=== PATIENT | male | born 1955 | race Caucasian/White ===

== ENCOUNTER 2016-10-26 00:20 | Inpatient (IN) | payer OTHER ==
[~2016-10-26] VITALS: Ht 177.8 cm; Wt 84.4 kg
[2016-10-26] VITALS (12 sets, daily range): BP systolic 115–140; BP diastolic 55–75
[2016-10-26] MEDS ORDERED: PHENYLEPHRINE 0.5% NASAL SPRAY 15 ML BOTTLE NS ONE (00:59)
[2016-10-26] MEDS ORDERED: PHENYLEPHRINE HCL NASAL SPRAY 15 ML BOTTLE NS ONE (01:00)
[2016-10-26 01:40] LABS: POTASSIUM 3.7 mmol/L (3.5-5.1)
[2016-10-26 01:42] LABS: ALBUMIN 2.5 g/dL (3.4-5.0); BILIRUBIN,DIRECT 0.1 mg/dL (0.0-0.2); BILIRUBIN,TOTAL 0.4 mg/dL (0.2-1.0); INDIRECT BILIRUBIN 0.3 mg/dL (0.0-1.1); TOTAL PROTEIN, SERUM 8.9 g/dL (6.4-8.2)
[2016-10-26 01:50] LABS: BASOPHILS % (AUTO) 0.2 % (0.0-2.0); EOSINOPHILS # (AUTO) 0.1 /CMM (0.0-0.7); EOSINOPHILS % (AUTO) 1.8 % (0.0-6.0); HEMATOCRIT 24 % (39-51); HEMOGLOBIN 8.1 g/dL (13.5-17.5); LYMPHOCYTES # (AUTO) 0.8 /CMM (0.8-4.8); LYMPHOCYTES % (AUTO) 14.9 % (20.0-44.0); MEAN CORPUSCULAR HEMOGLOBIN 31 PG (26.0-33.0); MEAN CORPUSCULAR HGB CONC 34 g/dl (31.0-36.0); MEAN CORPUSCULAR VOLUME 91 fL (80-96); MONOCYTES # (AUTO) 3.1 /CMM (0.1-1.30); MONOCYTES % (AUTO) 59.6 % (2.0-12.0); NEUTROPHILS # (AUTO) 1.2 /CMM (1.8-8.9); NEUTROPHILS % (AUTO) 23.5 % (43.0-81.0); RED BLOOD CELL COUNT(AUTO) 2.63 MIL/uL (4.5-6.0); WHITE BLOOD COUNT (AUTO) 5.2 K/uL (4.3-11.0)
[2016-10-26 01:58] LABS: PLATELET COUNT (AUTO) 7 /CMM (150-450)
[2016-10-26] MEDS ORDERED: IV NS 0.9% 1,000 ML BAG IV ONE (02:00)
[2016-10-26 02:10] LABS: INR 1.16 (0.87-1.13); PROTHROMBIN TIME 12.6 SECS (9.5-12.7)
[2016-10-26] MEDS ORDERED: IV NS 0.9% 1,000 ML ONE ×2 (02:11→03:25)
[2016-10-26] MEDS ORDERED: IV SET PRIMARY 1 EA INFUS.SET MC ONE (02:11)
[2016-10-26] MEDS ORDERED: PLATELET IV SET 1 EA INFUS.SET MC ONE ×2 (02:54→10:02)
[2016-10-26] MEDS ORDERED: ONDANSETRON HCL/PF 4 MG/2 ML VIAL IVP PRN (03:30)
[2016-10-26] MEDS ORDERED: ACETAMINOPHEN 325 MG TABLET PO PRN (03:30)
[2016-10-26] MEDS ORDERED: MAGNESIUM HYDROXIDE 30 ML UDC PO PRN (03:30)
[2016-10-26] MEDS ORDERED: HYDROCODONE/APAP 10/325MG 1 EA TABLET PO PRN (03:30)
[2016-10-26] MEDS ORDERED: MAG HYDROX/AL HYDROX/SIMETH 30 ML UDC PO PRN (03:30)
[2016-10-26] MEDS ORDERED: ZOLPIDEM TARTRATE 5 MG TABLET PO PRN (03:30)
[2016-10-26] MEDS ORDERED: Z GUARD REMEDY 2 OZ OINT TP PRN (03:30)
[2016-10-26] MEDS ORDERED: HYDROCODONE/APAP 5/325MG 1 EACH TABLET PO PRN (03:30)
[2016-10-26] MEDS ORDERED: IV SET PRIMARY PUMP SET 1 EA INFUS.SET MC ONE (03:32)
[2016-10-26] MEDS: IV NS 0.9% 1,000 ML IV PRN (03:37)
[2016-10-26] MEDS ORDERED: IV NS 0.9% 250 ML IV ONE (03:41)
[2016-10-26] MEDS ORDERED: BLOOD IV SET 1 EA INFUS.SET MC ONE (03:41)
[2016-10-26 04:08] LABS: ANISOCYTOSIS 1+; BAND % (MANUAL) 5 % (0.0-5.0); BASOPHILS % (MANUAL) 0 % (0.0-2.0); EOSINOPHILS % (MANUAL) 3 % (0-4); LYMPHOCYTES % (MANUAL) 61 % (16-48); PLATELET ESTIMATE DECREASED
[2016-10-26 06:00] LABS: COLLAGEN/ADP > 300.0 SEC (67.0-117.0); COLLAGEN/EPINEPHRINE > 300.0 SEC (90.0-191.0)
[2016-10-26 08:44] LABS: PHOSPHORUS 4.9 mg/dL (2.5-4.9); POTASSIUM 3.6 mmol/L (3.5-5.1)
[2016-10-26] MEDS: PANTOPRAZOLE 40 MG TABLET.DR PO SCH (09:59)
[2016-10-26 17:14] LABS: KETONES,URINE NEGATIVE (NEGATIVE); LEUKOCYTE ESTERASE ,URINE NEGATIVE (NEGATIVE)
[2016-10-26 17:26] LABS: ADD UA MICROSCOPIC YES
[2016-10-26 17:57] LABS: URINE TOTAL PROTEIN 187.6 mg/dL (0-11.9)
[2016-10-26 18:10] LABS: EOSINOPHILS # (AUTO) 0.1 /CMM (0.0-0.7); HEMOGLOBIN 8.2 g/dL (13.5-17.5); LYMPHOCYTES # (AUTO) 1.1 /CMM (0.8-4.8)
[2016-10-26 18:18] LABS: RBC,URINE 21-50 /HPF (0-2); WBC,URINE 0-2 /HPF (0-3)
[2016-10-26 18:18] LABS: BASOPHILS # (AUTO) 0.1 /CMM (0.0-0.2); BASOPHILS % (AUTO) 1.7 % (0.0-2.0); DIFF TOTAL % 100 %; EOSINOPHILS % (AUTO) 1.4 % (0.0-6.0); HEMATOCRIT 24 % (39-51); LYMPHOCYTES % (AUTO) 18.6 % (20.0-44.0); MEAN CORPUSCULAR HEMOGLOBIN 30 PG (26.0-33.0); MEAN CORPUSCULAR HGB CONC 34 g/dl (31.0-36.0); MEAN CORPUSCULAR VOLUME 88 fL (80-96); MONOCYTES # (AUTO) 3.3 /CMM (0.1-1.30); MONOCYTES % (AUTO) 58.1 % (2.0-12.0); NEUTROPHILS # (AUTO) 1.1 /CMM (1.8-8.9); NEUTROPHILS % (AUTO) 20.2 % (43.0-81.0); RED BLOOD CELL COUNT(AUTO) 2.73 MIL/uL (4.5-6.0); WHITE BLOOD COUNT (AUTO) 5.7 K/uL (4.3-11.0)
[2016-10-26 18:19] LABS: ADD URINE CULTURE NO
[2016-10-26 18:20] LABS: THYROID STIMULATING HORMONE 2.696 uIU/mL (0.358-3.74)
[2016-10-26 19:01] LABS: PLATELET COUNT (AUTO) 40 /CMM (150-450)
[2016-10-26 19:10] LABS: ANISOCYTOSIS 1+; BAND % (MANUAL) 2 % (0.0-5.0); LYMPHOCYTES % (MANUAL) 44 % (16-48); PLATELET ESTIMATE DECREASED
[2016-10-26 21:11] LABS: RETICULOCYTE COUNT 0.5 % (0.6-2.5)
[2016-10-27] MEDS: IV NS 0.9% 1,000 ML IV PRN (06:00)
[2016-10-27 07:18] LABS: CALCIUM, SERUM 11.6 mg/dL (8.5-10.1); CREATININE 1.9 mg/dL (0.6-1.3); PHOSPHORUS 4.9 mg/dL (2.5-4.9); POTASSIUM 3.7 mmol/L (3.5-5.1)
[2016-10-27 07:26] LABS: INR 1.16 (0.87-1.13); PROTHROMBIN TIME 12.5 SECS (9.5-12.7)
[2016-10-27 08:00] VITALS: BP 123/65
[2016-10-27] MEDS: PANTOPRAZOLE 40 MG TABLET.DR PO SCH (08:20)
[2016-10-27 08:44] LABS: BASOPHILS # (AUTO) 0.1 /CMM (0.0-0.2); DIFF TOTAL % 100 %; EOSINOPHILS # (AUTO) 0.1 /CMM (0.0-0.7); EOSINOPHILS % (AUTO) 1.4 % (0.0-6.0); HEMATOCRIT 24 % (39-51); HEMOGLOBIN 8.3 g/dL (13.5-17.5); LYMPHOCYTES # (AUTO) 1.3 /CMM (0.8-4.8); LYMPHOCYTES % (AUTO) 27.5 % (20.0-44.0); MEAN CORPUSCULAR HEMOGLOBIN 30 PG (26.0-33.0); MEAN CORPUSCULAR HGB CONC 34 g/dl (31.0-36.0); MEAN CORPUSCULAR VOLUME 87 fL (80-96); MONOCYTES # (AUTO) 2.2 /CMM (0.1-1.30); MONOCYTES % (AUTO) 48.8 % (2.0-12.0); NEUTROPHILS # (AUTO) 0.9 /CMM (1.8-8.9); NEUTROPHILS % (AUTO) 20.3 % (43.0-81.0); RED BLOOD CELL COUNT(AUTO) 2.79 MIL/uL (4.5-6.0); WHITE BLOOD COUNT (AUTO) 4.6 K/uL (4.3-11.0)
[2016-10-27 09:27] LABS: PLATELET COUNT (AUTO) 26 /CMM (150-450)
[2016-10-27 12:55] LABS: EOSINOPHILS % (MANUAL) 4 % (0-4); LYMPHOCYTES % (MANUAL) 75 % (16-48); PLATELET ESTIMATE DECREASED
[2016-10-27 16:00] VITALS: BP 123/59
[2016-10-27 19:57] VITALS: BP 119/68
== END 2016-10-27 20:00 | disposition short-term general hospital (02) | DRG 813 ==
LOC: ER 00:26 → MEDSG2 02:48
PROVIDERS: ADMIT Nurse Practitioner Acute Care; ATTEND Internal Medicine
PROC: 30233N1 Transfusion of Nonautologous Red Blood Cells into Peripheral Vein, Percutaneous Approach (ICD-10-PCS; principal; 2016-10-26)
PROC: 30233R1 Transfusion of Nonautologous Platelets into Peripheral Vein, Percutaneous Approach (ICD-10-PCS; principal; 2016-10-26)
DX: D69.59 Other secondary thrombocytopenia (principal); C90.02 Multiple myeloma in relapse; Z94.81 Bone marrow transplant status; C90.01 Multiple myeloma in remission; R04.0 Epistaxis; D64.9 Anemia, unspecified; E78.5 Hyperlipidemia, unspecified; E83.52 Hypercalcemia; D63.8 Anemia in other chronic diseases classified elsewhere; N18.3 Chronic kidney disease, stage 3 (moderate)
CPT/HCPCS: 36415; 76770-TC; 80048-TC; 80061-TC; 80076-TC; 81000-TC; 82272-TC; 82570-TC; 82728-TC; 82746; 83540-TC; 83735-TC; 84100-TC; 84155-TC; 84300-TC; 84439-TC; 84443-TC; 85025-TC; 85045-TC; 85378-TC; 85385-TC; 85610-TC; 85730-TC; 86850-TC; 86921-TC; 87081-TC; A4606; J7030; J7050; P9016-BL; P9034-BL; Z7610